=== PATIENT | female | born 1990 | race Hispanic/Latino ===

== ENCOUNTER 2018-02-17 19:18 | Emergency (ER) | payer OTHER ==
[~2018-02-17] VITALS: Ht 157.5 cm; Wt 83.5 kg
--- OUTSIDE RECORDS SUMMARY | 2018-02-17 19:21 | XMS REPORT ---
Author [facility] Address Unknown Phone Unavailable Care Team Providers Care [employer] Driver Name Role Phone CECIL RAO GUMARO Unavailable Payers Payer Name Policy Type Policy Number Effective Date Expiration Date Problems This patient has no known problems. Allergies, Adverse Reactions, Alerts Allergy Name Allergy Type Status Severity Reaction(s) Onset Date Inactive Date Treating Clinician Comments yung JENKINS Active SV 2009-09-18 00:00:00 Medications This patient has no known medications. Encounters Start Date/Time End Date/Time Encounter Type Admission Type Attending Clinicians Care Facility Care Department Encounter ID 2017-02-09 10:41:00 2017-02-09 10:41:00 Emergency C [facility] [id number] 2017-01-28 02:32:00 2017-01-28 02:32:00 Emergency E [facility] [id number]
[2018-02-17] MEDS ORDERED: SLEEP AID25 M1 PO (20:24)
[2018-02-17] MEDS ORDERED: VITAMIN B-650 MG PO (20:24)
== END 2018-02-17 20:46 | disposition home or self-care (01) ==
LOC: FSED 19:18
DX: R10.33 Periumbilical pain (principal); R11.2 Nausea with vomiting, unspecified; M54.5 Low back pain; A08.11 Acute gastroenteropathy due to Norwalk agent; Z33.1 Pregnant state, incidental
CPT/HCPCS: 80053; 81003; 85025; 99283

== ENCOUNTER 2018-07-31 18:09 | Emergency (ER) | payer OTHER ==
[~2018-07-31] VITALS: Ht 157.5 cm; Wt 90.7 kg
[~2018-07-31 18:09] MED LIST: SLEEP AID25 M1 PO; VITAMIN B-650 MG PO
[2018-07-31] MEDS ORDERED: ACETAMINOPHEN 325 MG TAB PO ONE (20:15)
[2018-07-31] MEDS ORDERED: SODIUM CHLORIDE 0.9% 1000ML 1,000 ML IV SCH (20:30)
[2018-07-31] MEDS ORDERED: CEFTRIAXONE SOD 1 GM/NS 50 ML 50 ML IV ONE ×2 (20:30→20:34)
[2018-07-31] MEDS ORDERED: SODIUM CHLORIDE 0.9% 1000ML 1,000 ML ONE (20:35)
[2018-07-31 21:50] VITALS: BP 124/76
== END 2018-07-31 22:00 | disposition home or self-care (01) ==
LOC: FSED 18:09
DX: O26.893 Other specified pregnancy related conditions, third trimester (principal); O23.03 Infections of kidney in pregnancy, third trimester; R50.9 Fever, unspecified
CPT/HCPCS: 80053; 81003; 85025; 87086; 87186; 99283; J0696; J7030